=== PATIENT | male | born 1980 | race Caucasian/White ===

== ENCOUNTER 2019-01-22 00:42 | Emergency (ER) | payer SELFPAY ==
[2019-01-22 01:12] VITALS: RESP 18
[2019-01-22] MEDS ORDERED: Tdap Vaccine 0.5 ml Vial (10-64 yrs) IM ONE ×2 (01:32→01:51)
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
[2019-01-22 04:05] VITALS: BP 121/64; PULSE 87; TEMP 98.9
[2019-01-22 04:23] VITALS: O2SAT 96
[2019-01-22] MEDS ORDERED: Bacitracin 500 Units/gm Oint Foilpak UD ONE (04:55)
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
== END 2019-01-22 05:13 | disposition home or self-care (01) ==
LOC: C.ER 00:42
DX: S01.21XA Laceration without foreign body of nose, initial encounter (principal); S01.111A Laceration without foreign body of right eyelid and periocular area, initial encounter; S02.81XA Fracture of other specified skull and facial bones, right side, initial encounter for closed fracture; S02.2XXA Fracture of nasal bones, initial encounter for closed fracture; Y09 Assault by unspecified means; Y93.01 Activity, walking, marching and hiking